=== PATIENT | female | born 1935 | race Caucasian/White ===

== ENCOUNTER → 2016-08-08 | Outpatient (CLI) | payer OTHER ==
[2016-08-08 13:03] LABS: BASO % 0.7 %; BASO ABS # 0.05 K/uL (0-0.2); COMPLETE YES; EOS % 6.4 %; HEMATOCRIT 36.4 % (37-47); IG% 0.1 %; LYMPH % 21.5 %; LYMPH ABS # 1.45 K/uL (1.2-3.4); MEAN CELL VOLUME 89.9 fL (80-100); MEAN CORPUSCULAR HEMOGLOBIN 31.4 pg (25-34); MEAN CORPUSCULAR HGB CONC 34.9 g/dl (32-36); MEAN PLATELET VOLUME 9.1 fL (7.4-10.4); MONO % 7.4 %; NEUT % 63.9 %; PLATELET COUNT 154 K/uL (130-400); RED BLOOD COUNT 4.05 M/uL (4.2-5.4); WHITE BLOOD COUNT 6.73 K/uL (4.8-10.8)
[2016-08-08 13:36] LABS: ESTIMATED AVERAGE GLUCOSE 120 mg/dl; HA1C FLAG Normal (Normal)
[2016-08-08 14:16] LABS: ALKALINE PHOSPHATASE 80 U/L (45-117); ALT/SGPT 30 U/L (12-78); AST/SGOT 18 U/L (15-37); BLOOD UREA NITROGEN 21 mg/dl (7-18); BUN/CREATININE RATIO 17.8 (10-20); CALCIUM 8.9 mg/dl (8.5-10.1); CARBON DIOXIDE 28 mmol/L (21-32); CHLORIDE 102 mmol/L (98-107); GLUCOSE 116 mg/dl (70-99); HDL CHOLESTEROL 40 mg/dl; POTASSIUM 3.7 mmol/L (3.5-5.1); SODIUM 139 mmol/L (136-145)
[2016-08-08 14:20] LABS: ALB/GLOB RATIO 1.3 (0.9-2); CHOLESTEROL 251 mg/dl (0-200); CHOLESTEROL/HDL RATIO 6.3; TRIGLYCERIDES 624 mg/dl (0-150)
--- NOTE | 2016-08-15 12:06 | CODING QUERY MEDICAL NECESSITY ---
SUPPORTING DIAGNOSIS NEEDED A supporting diagnosis is required for the test/procedure performed on this patient in order for us to be reimbursed by the patient's insurance. Please provide a supporting diagnosis for the following test/procedure listed below next to the test name along with your signature. *If there is no additional diagnosis for this patient that would support the following test/procedure please document that below next to the test/procedure. Test(s)/Procedure(s) that require a supporting diagnosis: DOS 08/08 * Hba1c DIAGNOSIS: Provider Signature: Date: Thank you Irina Wolf [facility] Information Management Once completed, please kindly fax back to [phone] For questions please call [phone]
== END | disposition home or self-care (01) ==
LOC: C.LABMFLN 07:49
PROVIDERS: ATTEND Family Medicine
DX: I10 Essential (primary) hypertension (principal); E78.5 Hyperlipidemia, unspecified; R73.03 Prediabetes; E03.9 Hypothyroidism, unspecified

== ENCOUNTER → 2016-09-06 | Outpatient (CLI) | payer OTHER | END | disposition home or self-care (01) | LOC: C.LABMFLN 10:13 | PROVIDERS: ATTEND Family Medicine | DX: R35.0 Frequency of micturition (principal) ==

== ENCOUNTER → 2016-10-15 | Outpatient (CLI) | payer OTHER ==
[2016-10-15 13:46] LABS: URINE APPEARANCE TURBID (CLEAR); URINE BILIRUBIN NEG (NEG); URINE COLOR YELLOW; URINE NITRITE NEG (NEG); URINE PH 5.5 (4.5-7.5); URINE SPECIFIC GRAVITY 1.014 (1.000-1.030); UROBILINOGEN NEG (NEG)
[2016-10-15 13:52] LABS: MANUAL MICROSCOPIC REQUIRED? NO; REVIEW REQ? NO
== END | disposition home or self-care (01) ==
LOC: C.LABMFLN 11:55
PROVIDERS: ATTEND Family Medicine
DX: R35.0 Frequency of micturition (principal); N39.0 Urinary tract infection, site not specified

== ENCOUNTER → 2017-01-07 | Outpatient (CLI) | payer OTHER, MEDICARE ==
--- NOTE | 2017-01-07 14:50 | EXERCISE STRESS ECHO ---
*NOTICE TO RECEIVING REPUBLICAN AGENCY This information is strictly Confidential and protected under [place] law. [place] law prohibits you from making any further disclosure of this information unless further disclosure is expressly permitted by the written consent of the person to whom it pertains or is authorized by law. A general authorization for the release of medical or other information is not sufficient for this purpose. Hospital accepts no responsibility if the information is made available to any other person, INCLUDING THE PATIENT. Interpretation Summary * Name: ELMO SZYMANSKI Study Date: 01/07/2017 11:06 AM BP: 159/85 mmHg * Patient Location: [facility] HR: 57 * : 1935 (M/d/yyyy) Gender: Female Height: 64 in * Age: 81 yrs Ethnicity: [place] Weight: 155 lb * Ordering Physician: Kizzy Alanis MD * Performed By: Adriana Golden RDCS * * Reason For Study: Exertional shortness of breath * BSA: 1.8 m2 * -- Conclusions -- * 1. Normal stress echocardiogram at 7.1 METS and a peak heart of 86% predicted maximum. * 2. No exercise-induced chest pain. * 3. No EKG changes. * 4. Baseline echocardiogram notes normal left ventricular systolic function and mild mitral regurgitation. Procedure Details * ECHOEX, CPT #[id number] * ECHO DOPPLER, CPT #[id number] * ECHO COLOR FLOW, CPT #[id number] Left Ventricle * The left ventricle is normal in size. * There is borderline concentric left ventricular hypertrophy. * Ejection Fraction = 65-70%. * Left ventricular systolic function is normal. * Resting wall motion: Normal. Stress wall motion: Appropriate increase in Left ventricular systolic function and decrease in cavity size. No stress induced segmental wall motion abnormalities. Right Ventricle * The right ventricle is grossly normal size. * The right ventricular systolic function is normal as assessed by tricuspid annular plane systolic excursion (TAPSE) (normal >1.5 cm). Atria * The left atrium is mildly dilated. * The right atrium is mildly dilated. * There is no evidence of atrial septal defect, but resolution does not allow assessment for a patent foramen ovale. Mitral Valve * The mitral valve is grossly normal. * There is no mitral valve stenosis. * There is mild mitral regurgitation. Tricuspid Valve * The tricuspid valve is not well visualized, but is grossly normal. * There is no tricuspid stenosis. * There is mild tricuspid regurgitation. Aortic Valve * The aortic valve is trileaflet. * The aortic valve opens well. * Aortic valve sclerosis moderate, without significant aortic valvular stenosis. * No aortic regurgitation is present. Pulmonic Valve * The pulmonary valve is not well seen, but the Doppler examination is normal without significant regurgitation or stenosis. Great Vessels * The aortic root and proximal ascending aorta are normal sized. * The pulmonary is not well visualized. Pericardium * There is no pericardial effusion. Stress Parameters * The baseline ECG displays normal sinus rhythm. * The stress ECG response was normal * The stress portion of this study was personally supervised by the undersigned interpreting physician. * Rest heart rate was '57' BPM. * Rest blood pressure was '159/85' * Maximum heart rate achieved was 122 bpm. * Maximum heart rate was 86 % of maximum age-predicted heart rate. * Maximum blood pressure was '210/85' * Total exercise time was '6:05' * Maximum exercise MET level achieved was '7.10' METS * Maximum treadmill speed was '3.40' miles per hour. * Maximum treadmill elevation was '14.00'% grade. * Exercise was terminated due to 'achieving target heart rate' Left Ventricular Diastolic Function * Diastolic dysfunction, Grade II (pseudonormalization pattern). MMode 2D Measurements and Calculations IVSd 0.90 cm LVIDd 4.6 cm LVIDs 2.8 cm LVPWd 1.1 cm IVS/LVPW 0.85 FS 40.0 % EDV(Teich) 98.9 ml ESV(Teich) 29.1 ml EF(Teich) 70.6 % EDV(cubed) 99.4 ml ESV(cubed) 21.5 ml EF(cubed) 78.4 % LV mass(C)d 156.6 grams LV mass(C)dI 89.2 grams/m\S\2 SV(Teich) 69.9 ml SI(Teich) 39.8 ml/m\S\2 SV(cubed) 77.9 ml SI(cubed) 44.4 ml/m\S\2 Ao root diam 3.2 cm Ao root area 8.1 cm\S\2 ACS 1.7 cm LA dimension 2.9 cm asc Aorta Diam 3.1 cm LA/Ao 0.91 LVOT diam 2.0 cm LVOT area 3.1 cm\S\2 LVAd ap4 18.4 cm\S\2 LVLd ap4 5.6 cm EDV(MOD-sp4) 48.5 ml EDV(sp4-el) 50.8 ml LVAs ap4 9.2 cm\S\2 LVLs ap4 4.4 cm ESV(MOD-sp4) 15.7 ml ESV(sp4-el) 16.3 ml EF(MOD-sp4) 67.7 % EF(sp4-el) 68.0 % LVAd ap2 20.9 cm\S\2 LVLd ap2 6.6 cm EDV(MOD-sp2) 54.9 ml EDV(sp2-el) 56.5 ml LVAs ap2 9.9 cm\S\2 LVLs ap2 4.6 cm ESV(MOD-sp2) 19.3 ml ESV(sp2-el) 17.9 ml EF(MOD-sp2) 64.8 % EF(sp2-el) 68.2 % LVLd %diff 14.3 % EDV(MOD-bp) 55.2 ml LVLs %diff 4.6 % ESV(MOD-bp) 17.3 ml EF(MOD-bp) 68.7 % SV(MOD-sp4) 32.9 ml SI(MOD-sp4) 18.7 ml/m\S\2 SV(MOD-sp2) 35.6 ml SI(MOD-sp2) 20.3 ml/m\S\2 SV(MOD-bp) 37.9 ml SI(MOD-bp) 21.6 ml/m\S\2 SV(sp4-el) 34.5 ml SI(sp4-el) 19.7 ml/m\S\2 SV(sp2-el) 38.5 ml SI(sp2-el) 21.9 ml/m\S\2 Doppler Measurements and Calculations MV E max marianna 96.5 cm/sec MV dec time 0.20 sec Ao V2 max 113.8 cm/sec Ao max PG 5.2 mmHg Ao max PG (full) 1.9 mmHg JOSE D(V,A) 2.5 cm\S\2 JOSE D(V,D) 2.5 cm\S\2 LV V1 max PG 3.3 mmHg LV V1 max 91.2 cm/sec PA V2 max 89.6 cm/sec PA max PG 3.2 mmHg PA acc slope 450.0 cm/sec\S\2 PA acc time 0.16 sec TR max marianna 281.0 cm/sec PA pr(Accel) 7.7 mmHg
== END | disposition home or self-care (01) ==
LOC: C.CPL 10:34
PROVIDERS: ATTEND Family Medicine
DX: R06.02 Shortness of breath (principal)

== ENCOUNTER → 2017-02-06 | Outpatient (CLI) | payer OTHER, MEDICARE ==
--- NOTE | 2017-02-06 11:28 | DIAGNOSTIC IMAGING REPORT ---
CHEST 2 VIEWS ROUTINE HISTORY: R06.02 Exertional shortness of [id number] COMPARISON: None. FINDINGS: Calcified granuloma within the right midlung zone. The heart is borderline enlarged. No focal lung consolidations to suggest pneumonia. No evidence for pulmonary edema. No pleural effusions. No pneumothorax. IMPRESSION: Borderline enlargement of the cardiac silhouette. Otherwise, no acute process within the chest. Electronically signed by: Naveen Murphy M.D. 02/06/2017 11:27 AM Dictated Date/Time: 02/06/2017 11:26 AM
== END | disposition home or self-care (01) ==
LOC: C.RAD 10:47
PROVIDERS: ATTEND Family Medicine
DX: R06.02 Shortness of breath (principal)

== ENCOUNTER → 2017-03-15 | Outpatient (CLI) | payer OTHER, MEDICARE ==
[2017-03-15 13:20] LABS: BASO % 1.1 %; BASO ABS # 0.09 K/uL (0-0.2); COMPLETE YES; EOS % 7.4 %; HEMATOCRIT 35.3 % (37-47); IG% 0.4 %; LYMPH ABS # 1.41 K/uL (1.2-3.4); MEAN CELL VOLUME 90.7 fL (80-100); MEAN CORPUSCULAR HEMOGLOBIN 31.9 pg (25-34); MEAN CORPUSCULAR HGB CONC 35.1 g/dl (32-36); MONO % 6.5 %; NEUT % 66.6 %; PLATELET COUNT 162 K/uL (130-400); RED BLOOD COUNT 3.89 M/uL (4.2-5.4); WHITE BLOOD COUNT 7.85 K/uL (4.8-10.8)
== END | disposition home or self-care (01) ==
LOC: C.LABMFLN 11:01
PROVIDERS: ATTEND Family Medicine
DX: R04.2 Hemoptysis (principal)

== ENCOUNTER → 2017-03-20 | Outpatient (CLI) | payer OTHER, MEDICARE ==
--- NOTE | 2017-03-20 12:11 | DIAGNOSTIC IMAGING REPORT ---
CHEST 2 VIEWS ROUTINE HISTORY: R04.2 [id number] COMPARISON: Chest 02/06/2017. FINDINGS: Stable calcified granuloma within the right midlung zone. The lungs are otherwise clear. Cardiac silhouette remains borderline enlarged. No pleural effusions. No pneumothorax. IMPRESSION: Stable borderline cardiomegaly. No acute process within the chest. Electronically signed by: Naveen Murphy M.D. 03/20/2017 12:09 PM Dictated Date/Time: 03/20/2017 12:08 PM
== END | disposition home or self-care (01) ==
LOC: C.RAD 11:24
PROVIDERS: ATTEND Family Medicine
DX: R04.2 Hemoptysis (principal)

== ENCOUNTER → 2017-04-25 | Outpatient (CLI) | payer OTHER, MEDICARE ==
[2017-04-25 13:26] LABS: MANUAL MICROSCOPIC REQUIRED? YES; REVIEW REQ? NO; URINE APPEARANCE SLIGHTLY CLOUDY (CLEAR); URINE COLOR ORANGE
[2017-04-25 13:32] LABS: SULFASALICYLIC ACID NEG (NEG)
[2017-04-25 13:36] LABS: URINE BACTERIA 1+ (NEG); URINE GRANULAR CAST 0-3 /lpf (0); URINE WBC >30 /hpf (0-5)
== END | disposition home or self-care (01) ==
LOC: C.LABMFLN 10:42
PROVIDERS: ATTEND Family Medicine
DX: N39.0 Urinary tract infection, site not specified (principal)

== ENCOUNTER → 2017-04-29 | Outpatient (CLI) | payer OTHER, MEDICARE | END | disposition home or self-care (01) | LOC: C.LABMFLN 14:32 | PROVIDERS: ATTEND Family Medicine | DX: N39.0 Urinary tract infection, site not specified (principal) ==

== ENCOUNTER → 2017-08-16 | Outpatient (CLI) | payer OTHER, MEDICARE ==
[2017-08-16 12:58] LABS: INR 1.7 (0.9-1.1)
== END | disposition home or self-care (01) ==
LOC: C.LABMFLN 10:39
PROVIDERS: ATTEND Family Medicine
DX: I48.1 Persistent atrial fibrillation (principal)

== ENCOUNTER → 2017-09-05 | Outpatient (CLI) | payer OTHER, MEDICARE | END | disposition home or self-care (01) | LOC: C.LABMFLN 10:29 | PROVIDERS: ATTEND Internal Medicine Cardiovascular Disease | DX: I10 Essential (primary) hypertension (principal); E78.5 Hyperlipidemia, unspecified; R06.02 Shortness of breath; E78.1 Pure hyperglyceridemia ==

== ENCOUNTER → 2017-11-04 | Outpatient (CLI) | payer OTHER, MEDICARE | END | disposition home or self-care (01) | LOC: C.LABMFLN 09:20 | PROVIDERS: ATTEND Family Medicine | DX: R30.0 Dysuria (principal) ==